=== PATIENT | female | born 1965 | race African-American/Black ===

== ENCOUNTER 2018-11-20 11:37 | Emergency (ER) | payer OTHER | END 2018-11-20 14:53 | disposition home or self-care (01) | LOC: JERFT 11:37 ==

== ENCOUNTER 2018-12-13 05:11 | Day surgery (SDC) | payer OTHER ==
[2018-11-20 09:51] VITALS: BMI 39.0
[2018-12-13] MEDS ORDERED: ROPIVACAINE HCL 0.5% 30ML VIAL ONE (08:08)
[2018-12-13] MEDS ORDERED: DEXAMETHASONE SOD PHOSPHATE/PF 10 MG/ML SDV ONE (08:08)
[2018-12-13] MEDS ORDERED: MIDAZOLAM HCL 2 MG/2 ML SINGLE DOSE VIAL ONE ×2 (08:09)
--- NOTE | 2018-12-13 09:44 | HP ---
[facility] - Chief Complaint Chief Complaint: right shoulder pain - Past Medical History Allergies/Adverse Reactions: Allergies Allergy/AdvReac Type Severity Reaction Status Date / Time Penicillins Allergy Mild Rash Verified 12/13/18 08:04 ...LMP: 02/14/05 - Current Medications Current Medications: Home Medications Medication Instructions Recorded Azilsartan Medoxomil [Edarbi] 40 mg PO DAILY 11/20/18 Naproxen 500 mg PO BID PRN 11/20/18 Nebivolol HCl [Bystolic] 20 mg PO DAILY 11/20/18 Olopatadine HCl [Pataday] 2.5 ml OU DAILY 11/20/18 Oxycodone HCl/Acetaminophen 1 - 2 tab PO Q6H #30 tab MDD 6 12/13/18 [Percocet 5-325 mg Tablet] Satellite Physical Exam - Physical Examination Vital Signs: Vital Signs Period Temp Pulse Resp BP Sys/Hanna Pulse Ox Last 24 Hr 97.7 F 82 20 112/60 97 General Appearance: Well Nourished, Well Developed, Alert & Oriented x3 ENT: Clear Lung: Normal air movement Heart: Regular rate & rhythm Extremities: Other (right shoulder- + ttp, decr rom, + neer, + mejia, + empty can, nvi MRI RCT) Neurological: Intact, Alert, Oriented Satellite Impression/Plan - Impression/Plan Impression: right shoulder rct Operative Procedure: right shoulder arthroscopy with IRAM, RCR Date to be Performed: 12/13/18
[2018-12-13] MEDS ORDERED: PROPOFOL 20 ML ONE ×2 (10:03→10:26)
[2018-12-13] MEDS ORDERED: ePHEDrine SULFATE 50 MG/1 ML AMPULE ONE (10:21)
[2018-12-13] MEDS ORDERED: SUCCINYLCHOLINE CHLORIDE 200 MG/10 ML VIAL ONE (10:25)
[2018-12-13] MEDS ORDERED: LIDOCAINE HCL/PF 2% SDV 5ML VIAL ONE (10:26)
--- NOTE | 2018-12-13 11:52 | OP ---
Operative Note - Note: Operative Date: 12/13/18 Pre-Operative Diagnosis: right shoulder impingement syndrome, RTC tear Operation: right shoulder arthroscopy, subacromial decompression, distal clavicle excision, arthroscopic RTC repair Implants: 2 x Arthrex Swivel Lock anchors, fiber wire x 6 Surgeon: Gulshan Estrada Actimize Architect: Eduardo Catalan Anesthesiologist/BEND UP: Oscar Lane Anesthesia: General, Local Specimens Removed: shavings Estimated Blood Loss (mls): 25 Blood Volume Replaced (mls): 0 Fluid Volume Replaced (mls): 1,000 Operative Report Dictated: Yes
[2018-12-13] MEDS ORDERED: ONDANSETRON 4 MG/2 ML VIAL ONE (12:49)
[2018-12-13] MEDS ORDERED: ONDANSETRON 4 MG/2 ML VIAL IVPUSH PRN (13:04)
[2018-12-13] MEDS ORDERED: oxyCODONE HCL 5 MG TABLET PO PRN ×2 (13:04)
[2018-12-13] MEDS ORDERED: LACTATED RINGERS SOLUTION 1,000 ML IV SCH (13:15)
[2018-12-13 14:04] VITALS: TEMP 97.3
[2018-12-13 16:00] VITALS: BP 102/58; PULSE 94
--- NOTE | 2018-12-14 08:50 | OP ---
DATE OF OPERATION: 12/13/2018 PREOPERATIVE DIAGNOSIS: Right shoulder impingement syndrome and rotator cuff tear. POSTOPERATIVE DIAGNOSIS: Right shoulder impingement syndrome and rotator cuff tear. PROCEDURE: Right shoulder arthroscopy, subacromial decompression, and arthroscopic rotator cuff repair. SURGEON: Ruma Perez MD MEDICAL OFFICE REPRESENTATIVE: JENNIFER Ramos ANESTHESIOLOGIST: Basil Luong____MD ANESTHESIA: Right interscalene block. DRAINS: None. COMPLICATIONS: None. SPECIMENS: Arthroscopic shavings. BLOOD LOSS: Minimal. BLOOD GIVEN: None. FLUID REPLACEMENT: [id number] mL. DESCRIPTION OF PROCEDURE: This patient is a 53-year-old female with a preoperative diagnosis of a right shoulder impingement syndrome and rotator cuff tear. After understanding the potential risks, complications, alternatives, and benefits of surgery versus nonsurgical treatment, the patient elected to undergo this procedure. The patient was brought into the operating room, peripheral IV placed, and IV sedation was given. Right interscalene block was performed, LMA anesthesia was induced, and she was placed into the beach-chair position with ample padding throughout. The right upper extremity was prepped and draped in sterile fashion. The bony landmarks were marked out with a marking pen. At first, we did use an arthroscopic EYE for diagnostic purposes, first putting the pointy trocar through the posterior portal doing a diagnostic glenohumeral arthroscopy. Immediately, it was apparent the patient had a large complete tear in the rotator cuff with a significant amount of fraying of both rotator cuff and the biceps tendon. The labrum looked good and the humeral head and the glenoid looked good. Next, we did an arthroscopic EYE diagnostic arthroscopy through the lateral portal and subacromial space, and I could easily see the humeral head further documenting a complete rotator cuff tear. Next, a No. 15 scalpel blade was utilized to establish a posterior portal. An arthroscope was introduced in the glenohumeral joint, and a diagnostic arthroscopy was performed with the arthroscope further confirming all the previous findings. An anterior portal was established. A Green cannula was introduced into the glenohumeral joint, and a shaver was used to do a debridement of the biceps tendon and the undersurface of the rotator cuff tear as well as a synovitis. The humeral head looked good. 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 The biceps tendon was torn about 60% of its fibers, but the 40% that were left looked quite good and quite strong. Therefore, I chose to leave it in place as opposed to doing a tenolysis. I debrided the torn edges of the biceps tendon, directly visualized the acromion from the glenohumeral joint. Next, the arthroscope was introduced into the subacromial space. The lateral portal was established with the spinal needle, and the No. 15 scalpel blade and the Green cannula were introduced into the subacromial space, and an extensive soft tissue bursectomy was performed with the ArthroCare wand. The patient had a tremendous amount of inflammatory bursitis. Once this was done, this revealed the patient had an os acromiale as well as a big bone spur on the undersurface of the distal clavicle and the undersurface of the acromion. The patient also had a large crescent-shaped full-thickness rotator cuff tear in the supraspinatus and infraspinatus tendons at its insertion. The ArthroCare wand was also used to debride the insertion of the rotator cuff and to do an additional subdeltoid bursectomy. The shaver was introduced and removed all soft tissue and bony debris. Next, the 5.5-mm oval jean-paul was used to take down the bone spur on the undersurface of the acromion, the os acromiale, and the undersurface of the distal clavicle. The shaver was reintroduced into the joint, all debris removed, and the decompression was fine-tuned, first with the jean-paul in reverse and then with the shaver. An excellent decompression was done and extensive debridement of what was previously extensive subacromial bursitis. Next, under direct visualization arthroscopically and using a scorpion needle-passer, I put in 6 FiberWire sutures. I put the posterior 6 tails and the anterior 6 tails through 2 separate Arthrex SwiveLock anchors. I mildly decorticated the insertion of the rotator cuff in the lateral aspect of the humeral head and put down the SwiveLock anchors in the standard fashion. Overall, the rotator cuff came down quite nicely. It was held in place over the prepared bed and moved as a unit with the humerus. The area was copiously irrigated and washed out. All instrumentation, debris, and excess saline were removed. The arthroscopic portals were closed with 3-0 nylon sutures. The area was then washed and dried, covered with Aquacel dressing, and a shoulder immobilizer was applied. The patient was extubated, brought down out of the beach-chair position, and brought to the ambulatory recovery room in stable condition. There were no complications during the case. Total blood loss was very minimal, perhaps 25 mL. RUMA PEREZ M.D. [id number]
--- NOTE | 2018-12-14 13:46 | PATH ---
Surgical Pathology Report Patient Name: GENNY MENDIOLA [facility]. Rec. #: [id number] /Age/Gender: 1965 (Age: 53) / F Account: [id number] Location: [facility] SURGICAL Taken: 12/13/2018 Received: 12/13/2018 Reported: 12/14/2018 Physicians: Gulshan Estrada M.D. Specimen(s) Received RIGHT SHOULDER SHAVINGS Clinical History Right shoulder impingement syndrome Final Diagnosis RIGHT SHOULDER SHAVINGS: FRAGMENTS OF BONE, CARTILAGE AND FIBROSYNOVIAL TISSUE WITH DEGENERATIVE CHANGE. Electronically Signed Lokesh Gurera M.D. Gross Description Received in formalin, labeled "right shoulder shavings," is a 5.5 x 5.0 x 1.2 cm. aggregate of tristan-yellow soft tissue fragments. A telephone service representative portion is submitted in one cassette. /12/13/201812/13/2018
== END 2018-12-13 15:50 | disposition home or self-care (01) ==
LOC: JASU-SURG 05:11
PROVIDERS: ATTEND Orthopaedic Surgery
PROC: 0LQ14ZZ Repair Right Shoulder Tendon, Percutaneous Endoscopic Approach (ICD-10-PCS; principal; 2018-12-13 09:00)
PROC: 0RNJ4ZZ Release Right Shoulder Joint, Percutaneous Endoscopic Approach (ICD-10-PCS; 2018-12-13 09:00)
DX: M75.41 Impingement syndrome of right shoulder (principal); M75.101 Unspecified rotator cuff tear or rupture of right shoulder, not specified as traumatic
CPT/HCPCS: 88304-TC; 94760

== ENCOUNTER 2019-03-04 14:58 | Emergency (ER) | payer OTHER ==
[2019-03-04 15:07] VITALS: BP 147/73; PULSE 66; TEMP 97.6; BMI 37.6
[2019-03-04] MEDS ORDERED: DIPHTH,PERTUSS(ACELL),TET 0.5 ML DISP.SYRIN IM ONE ×2 (15:21→15:51)
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
== END 2019-03-04 16:00 | disposition home or self-care (01) ==
LOC: JERFT 14:58
PROC: 3E0234Z Introduction of Serum, Toxoid and Vaccine into Muscle, Percutaneous Approach (ICD-10-PCS; principal; 2019-03-04)
PROC: 0HQGXZZ Repair Left Hand Skin, External Approach (ICD-10-PCS; 2019-03-04)
DX: S61.412A Laceration without foreign body of left hand, initial encounter (principal); W20.8XXA Other cause of strike by thrown, projected or falling object, initial encounter; Y93.89 Activity, other specified; Y92.038 Other place in apartment as the place of occurrence of the external cause; Y99.8 Other external cause status
CPT/HCPCS: 90715; 99281-25